=== PATIENT | male | born 1925 | race Caucasian/White ===

== ENCOUNTER 2016-04-10 13:09 | Emergency (ER) | payer OTHER ==
[~2016-04-10] VITALS: Ht 180.3 cm; Wt 93.0 kg
[2016-04-10 13:23] VITALS: BP 86/39
== END 2016-04-10 15:45 | disposition left against medical advice (07) ==
LOC: ER 13:16
DX: T16.2XXA Foreign body in left ear, initial encounter (principal); Z53.21 Procedure and treatment not carried out due to patient leaving prior to being seen by health care provider; X58.XXXA Exposure to other specified factors, initial encounter; Y93.89 Activity, other specified; Y99.8 Other external cause status; Y92.89 Other specified places as the place of occurrence of the external cause

== ENCOUNTER → 2016-04-18 | Outpatient (CLI) | payer OTHER ==
[2016-04-18 09:30] LABS: Basophils # (auto) 0.1 uL; Basophils % (auto) 0.6 % (0.0-2.0); Eosinophils # (auto) 0.4 uL; Hematocrit 40.8 % (41.0-53.0); Lymphocytes # (auto) 1.9 uL; Lymphocytes % (auto) 21.5 % (10.0-50.0); Mean Corpuscular Hemoglobin 30.2 pg (28.0-32.0); Mean Corpuscular Hgb Conc. 31.8 g/dL (32.0-36.0); Mean Corpuscular Volume 95.2 fL (80.0-100.0); Mean Platelet Volume 9.6 fL (7.4-10.4); Monocytes # (auto) 0.8 uL; Monocytes % (auto) 9.4 % (0.0-12.0); Neutrophils # (auto) 5.6 uL; Neutrophils % (auto) 63.5 % (37.0-80.0); Platelet Count (auto) 222 10^3/uL (140-450); Red Cell Distribution Width 15.1 % (11.6-16.0); White Blood Cell 8.8 10^3/uL (4.4-10.8)
[2016-04-18 09:36] LABS: Urine Bilirubin Negative (Negative); Urine Blood Negative /uL (Negative); Urine Color Yellow (Yellow); Urine Glucose Normal (Normal); Urine Ketone Negative (Negative); Urine Nitrite Negative (Negative); Urine RBC <1 /hpf (0 - 3); Urine Urobilinogen Normal (Negative)
[2016-04-18 09:47] LABS: Albumin 3.5 g/dL (3.4-5.0); BUN/Creatinine Ratio 18.7; Bilirubin, Total 0.4 mg/dL (0.2-1.0); Calcium 8.8 mg/dL (8.5-10.1); Potassium 4.4 mmol/L (3.5-5.1); Total Protein 7.3 g/dL (6.4-8.2)
== END | disposition home or self-care (01) ==
LOC: LAB 07:07
PROVIDERS: ATTEND Internal Medicine
DX: Z00.00 Encounter for general adult medical examination without abnormal findings (principal); I10 Essential (primary) hypertension; E11.9 Type 2 diabetes mellitus without complications
CPT/HCPCS: 36415; 80053; 80061; 81001; 82043; 83036; 84443; 85025

== ENCOUNTER → 2016-05-30 | Outpatient (CLI) | payer OTHER ==
[2016-05-30 11:15] LABS: Albumin 3.2 g/dL (3.4-5.0); BUN/Creatinine Ratio 13.8; Calcium 8.6 mg/dL (8.5-10.1); Phosphorus 2.7 mg/dL (2.5-4.90)
== END | disposition home or self-care (01) ==
LOC: LAB 10:08
PROVIDERS: ATTEND Internal Medicine
DX: E11.22 Type 2 diabetes mellitus with diabetic chronic kidney disease (principal); D63.1 Anemia in chronic kidney disease; N40.1 Benign prostatic hyperplasia with lower urinary tract symptoms; N18.3 Chronic kidney disease, stage 3 (moderate)
CPT/HCPCS: 36415; 80069; 84439; 84443; 84481